=== PATIENT | female | born 2005 | race Caucasian/White ===

== ENCOUNTER → 2024-07-29 13:16 | Outpatient (REF) | payer OTHER, SELFPAY | LOC: HWRAD 13:16 | PROVIDERS: ATTENDING PHYSICIAN Physician Assistant Medical | DX: R10.11 Right upper quadrant pain (principal) | CPT/HCPCS: 76700 ==

== ENCOUNTER 2024-09-05 20:32 | Emergency (ER) | payer OTHER, SELFPAY ==
[2024-09-05 20:35] VITALS: BP 134/75
--- NOTE | 2024-09-05 22:03 | ED.GENMED ---
History of Present Illness
General
Chief Complaint: Crisis Evaluation
Source: patient
Exam Limitations: none
Time Seen by Provider: 09/05/24 20:55
Nursing documentation reviewed up to this point in time: agreed with
History of Present Illness
History of Present Illness:
Patient with history of depression, currently taking sertraline for the past 5 months, presents to ED secondary to increased level of anxiety and depression, without any obvious cause. Patient does have an appointment with his psychiatrist next
month. In addition, patient returns college, does have therapist/counselor available, with whom she can speak with. Patient denies any suicidal or homicidal ideation. Patient has been eating and sleeping. Denies recent illness. Denies recent
weight loss.
Review of Systems
Review of Systems
Allergies reviewed?: Yes
All Other Systems: ROS reviewed and negative except as documented in HPI and ROS
Constitutional: Reports no symptoms
Respiratory: Reports no symptoms
Cardiac: Reports no symptoms
ABD/GI: Reports no symptoms
: Reports no symptoms
Musculoskeletal: Reports no symptoms
Skin: Reports no symptoms
Neurological: Reports no symptoms
Psychiatric: Reports depression and anxiety; Denies suicidal or hallucinations
Phy Exam
Physical Exam
Physical Exam:
Physical Exam
General: no apparent distress, not acutely ill. afebrile
Head: nc/at. eomi
Neck: supple. normal range of motion.
Heart: s1/s2 regular rate and rhythm, no murmur. equal radial pulses.
Lungs: no acute respiratory distress. clear bilaterally
Abdomen: normal bowel sounds. not tender.
Neuro: alert and oriented. no focal neurological deficits
Skin: no rash
Psychiatric: well kept. interactive and cooperative
Extremities: no edema. no calf tenderness.
Course
Orders/Labs/Results
Orders:
Orders
09/05/24 20:36
1:1 Observation - Suicide/ Violent Behavior As Directed
Crisis Consult Routine
Reason for Consult: suicidal ideation
Vital Signs
Initial and Last Documented VS:
Initial Vital Signs
Temp Pulse Resp BP Pulse Ox
98.2 F 99 16 134/75 100
09/05/24 20:35 09/05/24 20:35 09/05/24 20:35 09/05/24 20:35 09/05/24 20:35
Last Documented Vital Signs
Temp Pulse Resp BP Pulse Ox
98.2 F 99 16 134/75 100
09/05/24 20:35 09/05/24 20:35 09/05/24 22:25 09/05/24 20:35 09/05/24 20:35
MDM/Problems Addressed
MDM/Problems Addressed:
Patient evaluated by [facility] floorworker, who provided patient with outpatient resources. At this time, patient feels comfortable going home and will follow-up with her psychiatrist, as scheduled next month for reevaluation.
*Critical Care Note
Total Time (30-74mins, 75-104mins- exclusive of procedures): Not Applicable
ED Attending Note
-
Portions of this chart may have been created with voice recognition software.� Occasional wrong word or��sound alike� substitutions may have occurred due to the inherent limitations of voice recognition software.
Discharge Plan
Departure
Patient Disposition: Home (Routine Discharge)
Date of Disposition: 09/05/24
Time of Disposition: 22:03
Patient with high blood pressure during this ER visit?: Yes
Discharge Problem:
Depression
Instructions: Depression, Adult (DC)
Referrals:
UNKNOWN - PT DOES,NOT KNOW [Family Provider] -
Activity Restrictions/Additional Instructions:
As discussed, please follow-up with your psychiatrist, as scheduled, for further evaluation and treatment
Interventions
Interventions:
*Risk Screen - Suicide Last Done: 09/05/24 20:34
*General Assessment Last Done: 09/05/24 20:35
*Neglect/Abuse Screening Last Done: 09/05/24 20:35
*Nursing Disposition Last Done: 09/05/24 22:25
ED-Psychological Assessment Last Done: 09/05/24 20:54
Discharge Date and Time
Discharge Date/Time: 09/05/24 22:25
Print Language: MAORI
== END 2024-09-05 22:25 | disposition home or self-care (01) ==
LOC: EMR 20:32
PROVIDERS: EMERGENCY PHYSICIAN Emergency Medicine
DX: F32.A Depression, unspecified (principal); F41.9 Anxiety disorder, unspecified; R03.0 Elevated blood-pressure reading, without diagnosis of hypertension
CPT/HCPCS: 99283